=== PATIENT | female | born 1980 | race African-American/Black ===

== ENCOUNTER 2016-12-15 14:11 | Emergency (ER) | payer MEDICAID ==
[~2016-12-15] VITALS: Ht 167.6 cm; Wt 72.6 kg
[~2016-12-15 14:11] MED LIST: CIPR-262 PO; ONDA4TAB5 PO; TAMS-3 PO
--- NOTE | 2016-12-15 14:30 | NUR ---
Dr Smith at the bedside for eval and exam.
[2016-12-15] MEDS: KETOROLAC TROMETHAMINE 30 MG INJ IM ONE (14:37)
[2016-12-15 14:39] LABS: *BILIRUBIN,URIN NEGATIVE (NEGATIVE); *BLOOD, URINE 1+ (NEGATIVE); *COLOR,URINE YELLOW (YELLOW); *KETONES,URINE NEGATIVE (NEGATIVE); *PROTEIN,URINE NEGATIVE (NEGATIVE); *UROBILINOGEN,URINE 0.2 E.U./dl (NORMAL); LEUKOCYTE ESTERASE ,URINE TRACE (NEGATIVE); NITRITE, URINE NEGATIVE (NEGATIVE); UGLUCOSE NEGATIVE (NEGATIVE)
[2016-12-15 14:47] LABS: *CLARITY,URINE SLIGHTLY HAZY (CLEAR)
[2016-12-15] MEDS ORDERED: KETOROLAC TROMETHAMINE 30 MG INJ ONE (14:47)
[2016-12-15 14:48] LABS: BACTERIA,URINE FEW /HPF (NONE SEEN); MUCUS,URINE FEW /LPF (0-FEW); SQUAMOUS EPITHELIAL CELL,UR MODERATE /HPF (NONE SEEN)
[2016-12-15 14:50] LABS: *URINE HCG, QUAL NEGATIVE (NEGATIVE)
[2016-12-15 14:53] LABS: BASOPHILS % (AUTO) 0.4 % (0.0-2.0); EOSINOPHILS # (AUTO) 0.1 K/uL (0.0-0.7); EOSINOPHILS % (AUTO) 2.3 % (0.0-7.0); HEMATOCRIT 40.5 % (37-47); HEMOGLOBIN 13.2 G/DL (12.0-16.0); LYMPHOCYTES # (AUTO) 1.2 K/UL (0.8-4.8); LYMPHOCYTES % (AUTO) 25.2 % (20.5-51.5); MEAN CORPUSCULAR HEMOGLOBIN 28.6 UUG (27.0-31.0); MEAN CORPUSCULAR HGB CONC 33 g/dL (32.0-37.0); MEAN CORPUSCULAR VOLUME 87.9 FL (81.0-99.0); MONOCYTES # (AUTO) 0.6 K/UL (0.1-1.30); MONOCYTES % (AUTO) 12.6 % (0.0-11.0); NEUTROPHILS % (AUTO) 59.5 % (38.5-71.5); PLATELET COUNT (AUTO) 375 K/UL (150-450); RED BLOOD CELL COUNT(AUTO) 4.61 MIL/UL (4.2-5.4); WHITE BLOOD COUNT (AUTO) 4.9 K/UL (4.0-11.2)
[2016-12-15 14:57] LABS: CREATININE 0.8 mg/dL (0.6-1.3)
[2016-12-15 15:03] LABS: BILIRUBIN,DIRECT 0.1 mg/dL (0.0-0.2); BILIRUBIN,TOTAL 0.2 mg/dL (0.2-1.0); TOTAL PROTEIN, SERUM 7.2 g/dL (6.4-8.2)
--- NOTE | 2016-12-15 15:22 | NUR ---
Patient is resting comfortably in bed with eyes closed, NAD noted.
[2016-12-15] MEDS: HYDROMORPHONE 1 MG/1 ML DISP.SYRIN IM ONE (15:46)
[2016-12-15] MEDS: ONDANSETRON ODT 4 MG TAB.RAPDIS SL ONE (15:46)
[2016-12-15 15:52] VITALS: BP 114/79
--- NOTE | 2016-12-15 15:53 | NUR ---
Patient discharged to home in stable conditon. Written and verbal after care instructions given. Patient verbalizes understanding of instructions.
[2016-12-15] MEDS ORDERED: HYDROMORPHONE 1 MG/1 ML DISP.SYRIN ONE (15:56)
[2016-12-15] MEDS ORDERED: ONDANSETRON ODT 4 MG TAB.RAPDIS ONE (15:56)
== END 2016-12-15 15:53 | disposition home or self-care (01) ==
LOC: ER 14:11
DX: N20.0 Calculus of kidney (principal); Z87.442 Personal history of urinary calculi; F17.200 Nicotine dependence, unspecified, uncomplicated
CPT/HCPCS: 36415; 83690; 84703; 85025; 87077; 87086; A4663; J1170; J1885; Q0162

== ENCOUNTER 2016-12-17 21:24 | Emergency (ER) | payer MEDICAID ==
[~2016-12-17] VITALS: Ht 167.6 cm; Wt 72.6 kg
[2016-12-17] MEDS ORDERED: IV NORMAL SALINE 1000 ML BAG IV ONE (22:15)
[2016-12-17] MEDS ORDERED: HYDROMORPHONE 1 MG/1 ML DISP.SYRIN IV ONE (22:15)
[2016-12-17] MEDS ORDERED: ONDANSETRON 4 MG/2 ML VIAL IV ONE (22:15)
[2016-12-17 22:24] LABS: *BILIRUBIN,URIN NEGATIVE (NEGATIVE); *BLOOD, URINE NEGATIVE (NEGATIVE); *CLARITY,URINE CLEAR (CLEAR); *COLOR,URINE LIGHT YELLOW (YELLOW); *KETONES,URINE NEGATIVE (NEGATIVE); *PROTEIN,URINE NEGATIVE (NEGATIVE); *UROBILINOGEN,URINE 0.2 E.U./dl (NORMAL); LEUKOCYTE ESTERASE ,URINE NEGATIVE (NEGATIVE); NITRITE, URINE NEGATIVE (NEGATIVE); UGLUCOSE NEGATIVE (NEGATIVE)
[2016-12-17 22:32] LABS: *URINE HCG, QUAL NEGATIVE (NEGATIVE); SQUAMOUS EPITHELIAL CELL,UR FEW /HPF (NONE SEEN); WBC,URINE 0-3 /HPF (0-3)
[2016-12-17] MEDS ORDERED: HYDROMORPHONE 1 MG/1 ML DISP.SYRIN ONE (22:35)
[2016-12-17] MEDS ORDERED: ONDANSETRON 4 MG/2 ML VIAL ONE ×2 (22:35)
--- NOTE | 2016-12-17 23:22 | NUR ---
Patient discharged to home in stable conditon with SO. Written and verbal after care instructions given. Patient verbalizes understanding of instructions.
[2016-12-17 23:25] VITALS: BP 134/81
== END 2016-12-17 23:28 | disposition home or self-care (01) ==
LOC: ER 21:25
DX: N23 Unspecified renal colic (principal); Z87.442 Personal history of urinary calculi; F17.200 Nicotine dependence, unspecified, uncomplicated; Z85.3 Personal history of malignant neoplasm of breast
CPT/HCPCS: 84703; A4663; J1170; J2405; J7030

== ENCOUNTER 2016-12-24 20:24 | Emergency (ER) | payer MEDICAID ==
[~2016-12-24] VITALS: Ht 167.6 cm; Wt 72.6 kg
--- NOTE | 2016-12-24 20:58 | NUR ---
Pt ambulated to room with steady gait. Pt c/o bilat flank pain. Pt was seen here twice before for same complaint. Pt to follow up with urologist earliest appointment beginning of next week. Pt sts the pain has become severe with no relief from OTC medication. Pt resting in position of comfort for self with family at bedside. Awaiting further evaluation.
[2016-12-24] MEDS ORDERED: ONDANSETRON ODT 4 MG TAB.RAPDIS SL ONE (21:15)
[2016-12-24] MEDS ORDERED: HYDROCODONE/APAP 10-325 MG TABLET PO ONE (21:15)
--- NOTE | 2016-12-24 21:18 | NUR ---
Pt seen by Dr. Alvarado. Pt medicated for discomfort, will monitor for effects of medication.
[2016-12-24] MEDS ORDERED: ONDANSETRON ODT 4 MG TAB.RAPDIS ONE (21:26)
[2016-12-24] MEDS ORDERED: HYDROCODONE/APAP 10-325 MG TABLET ONE (21:26)
[2016-12-24 21:35] LABS: *BILIRUBIN,URIN NEGATIVE (NEGATIVE); *BLOOD, URINE NEGATIVE (NEGATIVE); *CLARITY,URINE CLEAR (CLEAR); *COLOR,URINE YELLOW (YELLOW); *KETONES,URINE NEGATIVE (NEGATIVE); *PROTEIN,URINE NEGATIVE (NEGATIVE); *URINE HCG, QUAL NEGATIVE (NEGATIVE); LEUKOCYTE ESTERASE ,URINE NEGATIVE (NEGATIVE); NITRITE, URINE NEGATIVE (NEGATIVE); UGLUCOSE NEGATIVE (NEGATIVE)
[2016-12-24 21:42] LABS: BACTERIA,URINE FEW /HPF (NONE SEEN); CALCIUM OXALATE CRYSTALS,UR FEW /HPF (NONE SEEN); MUCUS,URINE MODERATE /LPF (0-FEW); SQUAMOUS EPITHELIAL CELL,UR MODERATE /HPF (NONE SEEN)
[2016-12-24] MEDS ORDERED: MORPHINE SULFATE 4 MG/1 ML DISP.SYRIN IM ONE (22:00)
--- NOTE | 2016-12-24 22:00 | NUR ---
Pt cont to c/o severe pain. MD notified and pt medicated, will monitor for effects of medication.
[2016-12-24] MEDS ORDERED: MORPHINE SULFATE 4 MG/1 ML DISP.SYRIN ONE (22:03)
--- NOTE | 2016-12-24 22:13 | NUR ---
Pt stable for discharge per MD. Pt given [facility]CI. Pt verbalized understanding of dc instructions. Pt ambulated out of er with steady gait and ride home.
[2016-12-24 22:15] VITALS: BP 147/85
== END 2016-12-24 22:16 | disposition home or self-care (01) ==
LOC: ER 20:24
DX: N23 Unspecified renal colic (principal); Z87.442 Personal history of urinary calculi; F17.200 Nicotine dependence, unspecified, uncomplicated
CPT/HCPCS: 81001; 84703; 96372; 99284; A4663; J2270; Q0162

== ENCOUNTER 2017-09-02 13:52 | Emergency (ER) | payer MEDICAID, OTHER ==
[~2017-09-02] VITALS: Ht 167.6 cm; Wt 61.2 kg
[~2017-09-02 13:52] MED LIST changes: -CIPR-262 PO
[2017-09-02] MEDS ORDERED: VENLAFAXINE HCL ER 75 MG CAP ×2 (14:02→14:04)
[2017-09-02] MEDS ORDERED: ZOLPIDEM TARTRATE 5 MG TABLET (14:02)
[2017-09-02 14:39] LABS: *BILIRUBIN,URIN NEGATIVE (NEGATIVE); *BLOOD, URINE 2+ (NEGATIVE); *COLOR,URINE YELLOW (YELLOW); *KETONES,URINE NEGATIVE (NEGATIVE); *PROTEIN,URINE 1+ (NEGATIVE); *UROBILINOGEN,URINE 0.2 E.U./dl (NORMAL); LEUKOCYTE ESTERASE ,URINE NEGATIVE (NEGATIVE); NITRITE, URINE NEGATIVE (NEGATIVE); UGLUCOSE NEGATIVE (NEGATIVE)
[2017-09-02 14:40] LABS: *URINE HCG, QUAL NEGATIVE (NEGATIVE)
[2017-09-02 14:47] LABS: *CLARITY,URINE SLIGHTLY HAZY (CLEAR)
[2017-09-02 14:48] LABS: BACTERIA,URINE FEW /HPF (NONE SEEN); MUCUS,URINE MANY /LPF (0-FEW); RBC,URINE 20-50 /HPF (0-3); SQUAMOUS EPITHELIAL CELL,UR FEW /HPF (NONE SEEN)
[2017-09-02] MEDS ORDERED: PHENAZOPYRIDINE HCL 100 MG TABLET PO ONE (15:00)
[2017-09-02] MEDS ORDERED: PHENAZOPYRIDINE HCL 100 MG TABLET ONE (15:10)
[2017-09-02 15:22] LABS: BASOPHILS % (AUTO) 0.6 % (0.0-2.0); EOSINOPHILS % (AUTO) 0.3 % (0.0-7.0); HEMATOCRIT 44.6 % (31.2-41.9); HEMOGLOBIN 14.8 g/dL (10.9-14.3); LYMPHOCYTES # (AUTO) 1.3 K/uL (20.0-40.0); LYMPHOCYTES % (AUTO) 21.2 % (20.5-51.5); MEAN CORPUSCULAR HEMOGLOBIN 29.9 uug (24.7-32.8); MEAN CORPUSCULAR HGB CONC 33 g/dL (32.3-35.6); MONOCYTES # (AUTO) 0.6 K/uL (2.0-10.0); MONOCYTES % (AUTO) 10.2 % (0.0-11.0); NEUTROPHILS # (AUTO) 4.1 K/uL (1.8-8.9); NEUTROPHILS % (AUTO) 67.7 % (38.5-71.5); PLATELET COUNT (AUTO) 365 K/uL (179-408); RED BLOOD CELL COUNT(AUTO) 4.95 MIL/uL (3.63-4.92); WHITE BLOOD COUNT (AUTO) 6.1 K/uL (3.8-11.8)
[2017-09-02 15:32] LABS: CREATININE 0.9 mg/dL (0.6-1.3)
[2017-09-02 15:38] LABS: BILIRUBIN,DIRECT 0.1 mg/dL (0.0-0.2); BILIRUBIN,TOTAL 0.5 mg/dL (0.2-1.0); TOTAL PROTEIN, SERUM 7.9 g/dL (6.4-8.2)
--- NOTE | 2017-09-02 16:39 | NUR ---
Patient discharged to home in stable conditon. Written and verbal after care instructions given. Patient verbalizes understanding of instructions.
== END 2017-09-02 16:40 | disposition home or self-care (01) ==
LOC: ER 13:53
DX: N39.0 Urinary tract infection, site not specified (principal); F17.210 Nicotine dependence, cigarettes, uncomplicated; Z79.899 Other long term (current) drug therapy
CPT/HCPCS: 36415; 76770; 83690; 84703; 85025; 87086; A4663